=== PATIENT | male | born 1990 | race Caucasian/White ===

== ENCOUNTER 2019-04-20 17:07 | Emergency (ER) | payer SELFPAY ==
[~2019-04-20] VITALS: Ht 177.8 cm; Wt 65.9 kg
[2019-04-20 17:10] VITALS: BP 147/82; Ht 177.8 cm; Wt 65.9 kg
[2019-04-20] MEDS ORDERED: NAPROSYN500 MG PO (19:11)
== END 2019-04-20 19:30 | disposition home or self-care (01) ==
LOC: D.ER 17:07
DX: H66.92 Otitis media, unspecified, left ear (principal); M26.622 Arthralgia of left temporomandibular joint

== ENCOUNTER 2019-04-21 07:45 | Emergency (ER) | payer SELFPAY ==
[~2019-04-21] VITALS: Ht 177.8 cm; Wt 65.9 kg
[~2019-04-21 07:45] MED LIST: NAPROSYN500 MG PO
[2019-04-21 07:52] VITALS: BP 152/90; Ht 177.8 cm; Wt 65.9 kg
--- NOTE | 2019-04-21 08:49 | NUR ---
THE PATIENT IS IN DENIAL OF SUICIDE THOUGHTS, HE DOES NOT REQUIRE A 1:1 OBSERVATION AT THIS TIME BASED ON THE SUICIDE ASSESSMENT.
== END 2019-04-21 08:55 | disposition home or self-care (01) ==
LOC: D.ER 07:45
DX: R45.851 Suicidal ideations (principal)